=== PATIENT | female | born 1985 | race Caucasian/White ===

== ENCOUNTER 2021-06-27 14:38 | Day surgery (SDC) | payer SELFPAY ==
[~2021-06-27 14:38] MED LIST: Doxycycline 200 MG in Sodium Chloride 0.9% 250 ML IV ONE; Lactated Ringers 1,000 ML IV SCH
[2021-06-27] MEDS ORDERED: Doxycycline 200 MG in Dextrose 5% in Water 250 ML IV SCH ×2 (14:45)
[2021-06-27 16:21] LABS: BLOOD UREA NITROGEN,BUN 7 mg/dL (7.0-18.0); CARBON DIOXIDE,CO2 21.9 mmol/L (21.0-32.0); CHLORIDE,CL 101 mmol/L (98-107); GLUCOSE RANDOM 81 mg/dL (74-106); POTASSIUM,K 3.4 mmol/L (3.5-5.1); SODIUM,NA 136 mmol/L (136-145)
[2021-06-27] MEDS ORDERED: Ketorolac 30 MG/ML SDV IVPUSH ONE (17:49)
[2021-06-27] MEDS ORDERED: Acetaminophen/HYDROcodone 325-5 MG Tab PO PRN (17:49)
[2021-06-27] MEDS ORDERED: fentaNYL 250 MCG/5 ML SDV ONE ×2 (18:02)
[2021-06-27] MEDS ORDERED: Propofol 200 MG/20 ML SDV ONE ×2 (18:02→18:21)
[2021-06-27] MEDS ORDERED: Methylergonovine 0.2 MG/1 ML Amp ONE (18:29)
[2021-06-27] MEDS ORDERED: ePHEDrine 50 MG/ML SDV ONE (18:33)
[2021-06-27] MEDS ORDERED: Dexamethasone 4 MG/ML 5 ML MDV ONE (18:37)
[2021-06-27] MEDS ORDERED: Ondansetron 4 MG/2 ML SDV ONE (18:37)
[2021-06-27] MEDS ORDERED: Succinylcholine/Sod PF 100 MG/5 ML SYRINGE IV ONE (18:37)
== END 2021-06-27 20:49 | disposition home or self-care (01) ==
LOC: MW.SDS 14:38 → MW.MS 16:00 → MW.SDS 20:49
PROVIDERS: ATTEND Obstetrics & Gynecology
DX: O02.1 Missed abortion (principal); F17.210 Nicotine dependence, cigarettes, uncomplicated; Z01.812 Encounter for preprocedural laboratory examination; Z79.899 Other long term (current) drug therapy; Z88.8 Allergy status to other drugs, medicaments and biological substances; Z20.822 Contact with and (suspected) exposure to COVID-19
CPT/HCPCS: 36415; 59820; 76998; 80053; 85025; 86850; 86900; 86901; 87635; J0131; J0330; J1100; J2210; J2370; J2405; J2704; J3010; J3490; J7050; J7120; 01965; U0002